=== PATIENT | male | born 2000 | race Hispanic/Latino ===

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

== ENCOUNTER 2019-12-19 23:28 | Emergency (ER) | payer OTHER ==
[~2019-12-19] VITALS: Ht 167.6 cm; Wt 55.7 kg
[~2019-12-19 23:28] MED LIST changes: +SUMA50TA2
[2019-12-19] MEDS ORDERED: MAGIC MOUTHWASH SUSPENSION BTL SS STA (23:58)
[2019-12-20] MEDS ORDERED: ACYCLOVIR 200 MG CAPSULE PO ONE (01:00)
[2019-12-20] MEDS ORDERED: MAGICMW SSP (01:08)
[2019-12-20] MEDS ORDERED: ACYC1CAP20 PO (01:08)
[2019-12-20 01:14] VITALS: BP 122/64
== END 2019-12-20 01:14 | disposition home or self-care (01) ==
LOC: M ED 23:28
DX: J02.9 Acute pharyngitis, unspecified (principal); K12.1 Other forms of stomatitis; F17.200 Nicotine dependence, unspecified, uncomplicated; G43.909 Migraine, unspecified, not intractable, without status migrainosus; Z79.899 Other long term (current) drug therapy